=== PATIENT | male | born 1960 | race African-American/Black ===

== ENCOUNTER → 2016-12-31 | Outpatient (CLI) | payer OTHER ==
--- NOTE | 2016-12-31 16:37 | DI ---
Indication: ITS.REASON: M15.9 OSTEOARTHRITIS OF MULTIPLE JOINTS PROCEDURE: KNEE BILAT 4 OR > MORE VIEWS: Encounter: Initial Comparison: None Findings: There is no acute fracture, dislocation or malalignment identified. There is moderate osteoarthritis of both knee joints which is primarily involving the medial joint compartment. There is also moderate spurring of the dorsum of the patella. There is relative sparing of the lateral joint compartment bilaterally. The underlying mineralization and appears normal. No definite bony erosion or bony lesion. Impression: No acute osseous abnormality. Moderate bilateral osteoarthritis primarily involving the medial joint compartment and patellofemoral joint compartment with sparing of the lateral joint compartment. .
== END ==
LOC: IMA 15:02
PROVIDERS: ATTEND Nurse Practitioner Family
DX: M17.0 Bilateral primary osteoarthritis of knee (principal)